=== PATIENT | female | born 1995 | race Caucasian/White ===

== ENCOUNTER 2017-11-22 14:58 | Emergency (ER) | payer OTHER ==
[~2017-11-22] VITALS: Ht 165.1 cm; Wt 77.1 kg
[~2017-11-22 14:58] MED LIST: FLAGYL500 MG PO; IBUPROFEN600 MG PO; MOTRIN600 MG PO; PENICILLIN V P500 MG PO; PERCOCET 5-3251 TAB PO; PERCOCET 5/3251 TA1 PO; PRENATABS RX TA1 TAB; PRENAVITE1 TAB PO; TYLENOL 325 MG325 MG PO
[2017-11-22 15:22] VITALS: Ht 165.1 cm; Wt 77.1 kg
[2017-11-22] MEDS ORDERED: ZOFRAN ODT4 MG/UDTAB PO (18:24)
[2017-11-22 19:01] VITALS: BP 118/67
== END 2017-11-22 19:02 | disposition home or self-care (01) ==
LOC: D.ER 14:58
DX: S09.90XA Unspecified injury of head, initial encounter (principal); V29.9XXA Motorcycle rider (driver) (passenger) injured in unspecified traffic accident, initial encounter; Y93.89 Activity, other specified; Y92.410 Unspecified street and highway as the place of occurrence of the external cause; T14.8XXA Other injury of unspecified body region, initial encounter